=== PATIENT | male | born 1960 | race Caucasian/White ===

== ENCOUNTER 2020-07-11 11:33 | Emergency (ER) | payer BC, OTHER ==
[~2020-07-11] VITALS: Ht 177.8 cm; Wt 88.5 kg
[2020-07-11 11:52] LABS: BASOPHILS % (AUTO) 1 % (0-10); EOSINOPHILS # (AUTO) 0.2 10^3/uL (0.0-0.3); EOSINOPHILS % (AUTO) 3 % (0-10); HEMATOCRIT 49 % (40-54); HEMOGLOBIN 16.6 g/dL (13.3-17.7); LYMPHOCYTES # (AUTO) 2.1 10^3/uL (1.0-4.0); LYMPHOCYTES % (AUTO) 35 % (12-44); MEAN CORPUSCULAR HEMOGLOBIN 31 pg (25-34); MEAN CORPUSCULAR HGB CONC 34 g/dL (32-36); MEAN CORPUSCULAR VOLUME 92 fL (80-99); MEAN PLATELET VOLUME 9.5 fL (9.0-12.2); MONOCYTES # (AUTO) 0.5 10^3/uL (0.0-1.0); MONOCYTES % (AUTO) 8 % (0-12); NEUTROPHILS # (AUTO) 3.2 10^3/uL (1.8-7.8); NEUTROPHILS % (AUTO) 54 % (42-75); PLATELET COUNT 185 10^3/uL (130-400); WHITE BLOOD COUNT 5.9 10^3/uL (4.3-11.0)
[2020-07-11 12:02] LABS: ALBUMIN 4.5 GM/DL (3.2-4.5); CHLORIDE 104 MMOL/L (98-107); POTASSIUM 4.6 MMOL/L (3.6-5.0); SODIUM 138 MMOL/L (135-145)
[2020-07-11 12:03] LABS: CALCIUM 9.2 MG/DL (8.5-10.1)
[2020-07-11 12:04] LABS: GLUCOSE 95 MG/DL (70-105)
[2020-07-11 12:05] LABS: TOTAL PROTEIN 7.6 GM/DL (6.4-8.2)
[2020-07-11 12:06] LABS: CARBON DIOXIDE 22 MMOL/L (21-32)
[2020-07-11 12:07] LABS: BILIRUBIN,TOTAL 0.5 MG/DL (0.1-1.0)
[2020-07-11 12:08] LABS: ALKALINE PHOSPHATASE 51 U/L (40-136); CREATININE SERUM 1.22 MG/DL (0.60-1.30); GFR ESTIMATED > 60
[2020-07-11 12:09] LABS: BUN/CREATININE RATIO 9
[2020-07-11 12:11] LABS: ALANINE AMINOTRANSFERASE 21 U/L (0-55)
--- NOTE | 2020-07-11 12:12 | Diagnostic Imaging Report ---
INDICATION: Left-sided facial numbness. Time of exam 11:59 a.m. No prior studies are available for comparison. FINDINGS: The heart size is normal. The pulmonary vascularity is unremarkable. The lungs are clear. No infiltrate, effusion or pneumothorax is detected. IMPRESSION: No acute cardiopulmonary process is detected. Dictated by: Dictated on workstation # [id number]
--- NOTE | 2020-07-11 12:14 | Diagnostic Imaging Report ---
PROCEDURE: CT head wo r/o stroke. TECHNIQUE: Multiple contiguous axial images were obtained through the brain without the use of intravenous contrast. Auto Exposure Controls were utilized during the CT exam to meet ALARA standards for radiation dose reduction. INDICATION: Left-sided facial numbness since the 1200 on 07/10/2020. FINDINGS: Noncontrast CT scan the head demonstrates mass effect midline shift hemorrhage or extra-axial fluid collections. Garcia-white matter differentiation is normal. Ventricles cortical sulci and basilar cisterns are normal. Mild calcifications are seen in the carotid siphons. No insular ribbon sign or hyperdense MCA sign is present. The osseous structures appear normal. IMPRESSION: Normal CT scan the head. Dictated by: Dictated on workstation # [id number]
[2020-07-11 12:16] LABS: FIBRIN DEGRADATION PRODUCTS <= 0.27 UG/ML (0.00-0.49); INR 0.9 (0.8-1.4); PARTIAL THROMBOPLASTIN TIME 27 SEC (24-35); PROTHROMBIN TIME PATIENT 12.7 SEC (12.2-14.7)
[2020-07-11] MEDS ORDERED: IOHEXOL 350 MG/ML 100 ML (OMNIPAQUE 350) VIAL IV ONE (13:00)
[2020-07-11] MEDS ORDERED: NS 100 ML (IVPB) BAG IV ONE (13:00)
[2020-07-11] MEDS ORDERED: HOLD METFORMIN - RECEIVED CONTRAST 20 ML VIAL IV SCH (13:00)
[2020-07-11] MEDS ORDERED: LORazepam INJ 2 MG/ML (ATIVAN) VIAL IVP ONE (13:00)
[2020-07-11 13:05] LABS: BILIRUBIN,URINE NEGATIVE (NEGATIVE); CLARITY,URINE CLEAR; COLOR,URINE YELLOW; GLUCOSE, URINE (UA) NEGATIVE (NEGATIVE); KETONES,URINE NEGATIVE (NEGATIVE); LEUKOCYTE ESTERASE ,URINE NEGATIVE (NEGATIVE); NITRITE,URINE NEGATIVE (NEGATIVE); PROTEIN,URINE NEGATIVE (NEGATIVE)
[2020-07-11 13:15] LABS: BACTERIA,URINE TRACE /HPF
--- NOTE | 2020-07-11 13:53 | Diagnostic Imaging Report ---
PROCEDURE: CT angiography of the head and CT angiography of the neck with and without contrast. TECHNIQUE: Contiguous noncontrast images were obtained from the skull base through the vertex. After intravenous contrast administration, helical CT angiography of the neck was performed. Source data was reformatted into 3D MIP projections. Delayed post contrast acquisition was also obtained. Auto Exposure Controls were utilized during the CT exam to meet ALARA standards for radiation dose reduction. INDICATION: Left-sided numbness. On delayed postcontrast imaging through the brain is without evidence of an enhancing lesion. There is a three-vessel branching pattern to the aortic arch. Both common carotid arteries appear to be widely patent. The carotid bifurcations are unremarkable. Both right and left internal carotid arteries appear to be widely patent. Carotid siphons are unremarkable apart from mild calcified plaque. The M1 and M2 segments of the middle cerebral arteries are widely patent. No filling defect or thromboembolism is identified. The right and left anterior cerebral arteries appear to be widely patent. The basilar artery is patent. There is origin of the left posterior cerebral artery which appears be widely patent. Right posterior cerebral artery is patent. The vertebral arteries appear to be codominant. No stenosis or occlusion is seen. IMPRESSION: Unremarkable CT angiogram of the head and neck. No thromboembolism or large branch occlusion is identified. Dictated by: Dictated on workstation # [id number]
--- NOTE | 2020-07-11 15:00 | NUR ---
Daughter, Will, contacted this RN requesting pt update. Pt update given. Will requesting provider to contact her at earliest convenience. Provider notified. [phone]
--- NOTE | 2020-07-11 15:03 | ED Neurological Problem ---
General Chief Complaint: Neurological Problems Stated Complaint: L ARM/LEG TINGLE Nursing Triage Note: Pt ambulates to room #1 with c/o neurolgical s/s. Pt reports numbness/tingling to lips, L side of face, L hand, et L leg. Pt reports s/s began upon rise on 07/10/20 et have been intermittent since onset. A&OX4. Nursing Sepsis Screen: No Definite Risk Source: patient Exam Limitations: no limitations History of Present Illness Date Seen by Provider: Jul 11, 2020 Time Seen by Provider: 11:36 Initial Comments This 39-year-old gentleman presents to the emergency room with complaints of numbness and tingling to the left perioral area, left hand, and left leg. Symptoms first began about 36 hours ago. He has no true weakness. Symptoms have improved now and he has only a little bit of left perioral numbness remaining. He denies any major medical problems except for hyperlipidemia and high blood pressure not requiring treatment. Allergies and Home Medications Allergies Coded Allergies: No Allergy Information Available (Unverified , 07/11/20) Home Medications Atorvastatin Calcium 40 Mg Tablet, 40 MG PO DAILY Prescribed by: STEPHEN CHAMORRO on 07/11/20 1520 Clopidogrel Bisulfate 75 Mg Tablet, 75 MG PO DAILY Prescribed by: STEPHEN CHAMORRO on 07/11/20 1520 Patient Home Medication List Home Medication List Reviewed: Yes Review of Systems Review of Systems Constitutional: no symptoms reported Eyes: No Symptoms Reported Ears, Nose, Mouth, Throat: see HPI Respiratory: no symptoms reported Cardiovascular: no symptoms reported Gastrointestinal: no symptoms reported Genitourinary: no symptoms reported Musculoskeletal: no symptoms reported Skin: no symptoms reported Psychiatric/Neurological: See HPI Endocrine: No Symptoms Reported Hematologic/Lymphatic: No Symptoms Reported Past Lwxccof-Ktahtc-Wmfvys Hx Past Med/Social Hx: Reviewed Nursing Past Med/Soc Hx Patient Social History Alcohol Use: Denies Use Smoking Status: Never a Smoker Recent Foreign Travel: No Contact w/Someone Who Travel: No Recent Infectious Disease Expo: No Past Medical History Surgeries: No Respiratory: No Cardiac: Yes High Cholesterol, Hypertension Neurological: No Genitourinary: No Gastrointestinal: No Musculoskeletal: No Endocrine: No HEENT: No Cancer: No Physical Exam Vital Signs Vital Signs - First Documented 07/11/20 11:38 Temp 35.4 Pulse 76 Resp 18 B/P (MAP) 170/117 (134) Pulse Ox 97 O2 Delivery Room Air Capillary Refill : Less Than 3 Seconds Height, Weight, BMI Height: '" Weight: lbs. oz. 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, no motor/sensory deficits, alert, normal mood/affect, oriented x 3 Crainal Nerves: normal hearing, normal speech, PERRL Coordination/Gait: normal finger to nose (Normal heel to whitman), normal gait Motor/Sensory: no motor deficit, no sensory deficit, no pronator drift Skin: normal color, warm/dry Stroke NIH Stroke Scale Assessment Select: Initial Level of Consciousness: 0=Alert (0), Level of Consciousness-Questions: 0=Answers both month/age (0), LOC Commands: 0=Performs both tasks (0), Visual Siegel: 0=No visual loss (0), Facial Movement (Facial Paresis): 0=Normal symmetrical mnt (0), Motor Function-Arms Right: 0=No drift (0), Motor Function-Arms Left: 0=No drift (0), Motor Function-Legs Right: 0=No drift (0), Motor Function-Legs Left: 0=No drift (0), Limb Ataxia: 0=Absent (0), Sensory: 0=Normal:no loss (0), Dysarthria: 0=Normal (0), Extinction & Inattention: 0=No abnormality (0), Total: 0 Progress/Results/Core Measures Results/Orders Lab Results Laboratory Tests Test 07/11/20 11:46 07/11/20 12:35 Range/Units White Blood Count 5.9 4.3-11.0 10^3/uL Red Blood Count 5.29 4.30-5.52 10^6/uL Hemoglobin 16.6 13.3-17.7 g/dL Hematocrit 49 40-54 % Mean Corpuscular Volume 92 80-99 fL Mean Corpuscular Hemoglobin 31 25-34 pg Mean Corpuscular Hemoglobin Concent 34 32-36 g/dL Red Cell Distribution Width 12.0 10.0-14.5 % Platelet Count 185 130-400 10^3/uL Mean Platelet Volume 9.5 9.0-12.2 fL Immature Granulocyte % (Auto) 0 % Neutrophils (%) (Auto) 54 42-75 % Lymphocytes (%) (Auto) 35 12-44 % Monocytes (%) (Auto) 8 0-12 % Eosinophils (%) (Auto) 3 0-10 % Basophils (%) (Auto) 1 0-10 % Neutrophils # (Auto) 3.2 1.8-7.8 10^3/uL Lymphocytes # (Auto) 2.1 1.0-4.0 10^3/uL Monocytes # (Auto) 0.5 0.0-1.0 10^3/uL Eosinophils # (Auto) 0.2 0.0-0.3 10^3/uL Basophils # (Auto) 0.0 0.0-0.1 10^3/uL Immature Granulocyte # (Auto) 0.0 0.0-0.1 10^3/uL Prothrombin Time 12.7 12.2-14.7 SEC INR Comment 0.9 0.8-1.4 Activated Partial Thromboplast Time 27 24-35 SEC D-Dimer <= 0.27 0.00-0.49 UG/ML Sodium Level 138 135-145 MMOL/L Potassium Level 4.6 3.6-5.0 MMOL/L Chloride Level 104 98-107 MMOL/L Carbon Dioxide Level 22 21-32 MMOL/L Anion Gap 12 5-14 MMOL/L Blood Urea Nitrogen 11 7-18 MG/DL Creatinine 1.22 0.60-1.30 MG/DL Estimat Glomerular Filtration Rate > 60 BUN/Creatinine Ratio 9 Glucose Level 95 70-105 MG/DL Calcium Level 9.2 8.5-10.1 MG/DL Corrected Calcium 8.8 8.5-10.1 MG/DL Total Bilirubin 0.5 0.1-1.0 MG/DL Aspartate Amino Transf (AST/SGOT) 20 5-34 U/L Alanine Aminotransferase (ALT/SGPT) 21 0-55 U/L Alkaline Phosphatase 51 40-136 U/L Troponin I < 0.028 <0.028 NG/ML Total Protein 7.6 6.4-8.2 GM/DL Albumin 4.5 3.2-4.5 GM/DL Urine Color YELLOW Urine Clarity CLEAR Urine pH 7.0 5-9 Urine Specific [place] <=1.005 1.016-1.022 Urine Protein NEGATIVE NEGATIVE Urine Glucose (UA) NEGATIVE NEGATIVE Urine Ketones NEGATIVE NEGATIVE Urine Nitrite NEGATIVE NEGATIVE Urine Bilirubin NEGATIVE NEGATIVE Urine Urobilinogen 0.2 < = 1.0 MG/DL Urine Leukocyte Esterase NEGATIVE NEGATIVE Urine RBC (Auto) NEGATIVE NEGATIVE Urine RBC NONE /HPF Urine WBC NONE /HPF Urine Crystals NONE /LPF Urine Bacteria TRACE /HPF Urine Casts NONE /LPF Urine Mucus NEGATIVE /LPF Urine Culture Indicated NO My Orders Orders - STEPHEN ESQUIVEL MD Cbc With Automated Diff (07/11/20 11:43) Protime With Inr (07/11/20 11:43) Partial Thromboplastin Time (07/11/20 11:43) Comprehensive Metabolic Panel (07/11/20 11:43) Fibrin Degradation Products (07/11/20 11:43) Troponin I (07/11/20 11:43) Ua Culture If Indicated (07/11/20 11:43) Chest 1 View, Ap/Pa Only (07/11/20 11:43) Ekg Tracing (07/11/20 11:43) Nothing By Mouth (07/11/20 Lunch) Accucheck Stat ONCE (07/11/20 11:43) Ed Iv/Invasive Line Start (07/11/20 11:43) Ed Iv/Invasive Line Start (07/11/20 11:43) Vital Signs Stroke Patient Q15M (07/11/20 11:43) Ct Head Wo-R/O Stroke (07/11/20 11:43) O2 (07/11/20 11:43) Intake & Output 06,14,22 (07/11/20 11:43) Monitor-Rhythm Ecg Trace Only (07/11/20 11:43) Dysphagia Screening Tool (07/11/20 11:43) Ct Angio Head/Neck (07/11/20 12:47) Iohexol Injection (Omnipaque 350 Mg/Ml 1 (07/11/20 13:00) Received Contrast (Hold Metformin- Contr (07/11/20 13:00) Ns (Ivpb) (Sodium Chloride 0.9% Ivpb Bag (07/11/20 13:00) Lorazepam Injection (Ativan Injection) (07/11/20 13:00) Aspirin Tablet (Aspirin Tablet) (07/11/20 15:45) Medications Given in ED Vital Signs/I&O 07/11/20 07/11/20 11:38 15:36 Temp 35.4 35.4 Pulse 76 84 Resp 18 18 B/P (MAP) 170/117 (134) 154/62 (134) Pulse Ox 97 98 O2 Delivery Room Air Blood Pressure Mean: 134 Progress Progress Note #1: Time: 14:58 Progress Note Patient was more than 24 hours past the last known well time and he had no measurable deficits on presentation. He therefore was not eligible for TPA. CT of the head was obtained showing no gross abnormalities and no evidence of subacute stroke. Progress Note #2: Time: 15:15 Progress Note Case was discussed with Dr. Naik, stroke neurologist at [facility]. She agreed that patient is not a TPA candidate. She recommended CT angiogram which was p erformed and showed no additional pathology. She recommended that he start a regimen of Plavix, aspirin, and atorvastatin. The Plavix should be continued for a period of 21 days. After that he should continue with aspirin and atorvastatin. His outpatient work-up should be pursued with echocardiogram, possibly rhythm monitoring, and possibly MRI. Results and plan explained to the patient. Return precautions for further neurologic deficits were reviewed. Patient expressed understanding. Initial ECG Impression Date: Jul 11, 2020 Initial ECG Impression Time: 11:40 Initial ECG Rate: 78 Initial ECG Rhythm: Normal Sinus Initial ECG Intervals: Normal Initial ECG Impression: Normal Comment Normal sinus rhythm with no ST elevation or depression. No abnormal intervals or axis deviation. Diagnostic Imaging Diagonstic Imaging: CT Plain Films/CT/US/NM/MRI: head Comments CT head viewed by me and report reviewed. See report below: NAME: KAELYN SANTIAGO MED REC#: [id number] PT STATUS: REG ER : 1960 PHYSICIAN: STEPHEN ESQUIVEL MD ADMIT DATE: 07/11/20/ER Signed Date of Exam:07/11/20 CT HEAD WO-R/O STROKE PROCEDURE: CT head wo r/o stroke. TECHNIQUE: Multiple contiguous axial images were obtained through the brain without the use of intravenous contrast. Auto Exposure Controls were utilized during the CT exam to meet ALARA standards for radiation dose reduction. INDICATION: Left-sided facial numbness since the 1200 on 07/10/2020. FINDINGS: Noncontrast CT scan the head demonstrates mass effect midline shift hemorrhage or extra-axial fluid collections. Garcia-white matter differentiation is normal. Ventricles cortical sulci and basilar cisterns are normal. Mild calcifications are seen in the carotid siphons. No insular ribbon sign or hyperdense MCA sign is present. The osseous structures appear normal. IMPRESSION: Normal CT scan the head. Dictated by: Dictated on workstation # [id number] Dict: 07/11/20 1204 Trans: 07/11/201212 EL [id number] Interpreted by: DENNY SANCHES MD Electronically signed by: DENNY SANCHES MD 07/11/20 1213 Diagonstic Imaging: Xray Plain Films/CT/US/NM/MRI: chest Comments NAME: KAELYN SANTIAGO MED REC#: [id number] PT STATUS: REG ER : 1960 PHYSICIAN: STEPHEN ESQUIVEL MD ADMIT DATE: 07/11/20/ER Signed Date of Exam:07/11/20 CHEST 1 VIEW, AP/PA ONLY INDICATION: Left-sided facial numbness. Time of exam 11:59 a.m. No prior studies are available for comparison. FINDINGS: The heart size is normal. The pulmonary vascularity is unremarkable. The lungs are clear. No infiltrate, effusion or pneumothorax is detected. IMPRESSION: No acute cardiopulmonary process is detected. Dictated by: Dictated on workstation # [id number] Dict: 07/11/20 1210 Trans: 07/11/20 1508 [facility] [id number] Interpreted by: BIANCA CHERRY MD Electronically signed by: BIANCA CHERRY MD 07/11/20 1508 Diagonstic Imaging: CT Plain Films/CT/US/NM/MRI: other (angiogram head and neck) Comments NAME: KAELYN SANTIAGO Cris MED REC#: [id number] PT STATUS: REG ER : 1960 PHYSICIAN: STEPHEN ESQUIVEL MD ADMIT DATE: 07/11/20/ER Signed Date of Exam:07/11/20 CT ANGIO HEAD/NECK PROCEDURE: CT angiography of the head and CT angiography of the neck with and without contrast. TECHNIQUE: Contiguous noncontrast images were obtained from the skull base through the vertex. After intravenous contrast administration, helical CT angiography of the neck was performed. Source data was reformatted into 3D MIP projections. Delayed post contrast acquisition was also obtained. Auto Exposure Controls were utilized during the CT exam to meet ALARA standards for radiation dose reduction. INDICATION: Left-sided numbness. On delayed postcontrast imaging through the brain is without evidence of an enhancing lesion. There is a three-vessel branching pattern to the aortic arch. Both common carotid arteries appear to be widely patent. The carotid bifurcations are unremarkable. Both right and left internal carotid arteries appear to be widely patent. Carotid siphons are unremarkable apart from mild calcified plaque. The M1 and M2 segments of the middle cerebral arteries are widely patent. No filling defect or thromboembolism is identified. The right and left anterior cerebral arteries appear to be widely patent. The basilar artery is patent. There is origin of the left posterior cerebral artery which appears be widely patent. Right posterior cerebral artery is patent. The vertebral arteries appear to be codominant. No stenosis or occlusion is seen. IMPRESSION: Unremarkable CT angiogram of the head and neck. No thromboembolism or large branch occlusion is identified. Dictated by: Dictated on workstation # [id number] Dict: 07/11/20 1340 Trans: 07/11/20 1508 [facility] [id number] Interpreted by: BIANCA CHERRY MD Electronically signed by: BIANCA CHERRY MD 07/11/20 1508 Reviewed: Reviewed by Me Departure Impression Primary Impression: Numbness on left side Disposition: 01 HOME, SELF-CARE Condition: Stable Departure-Patient Inst. Decision time for Depature: 15:16 Referrals: NO,LOCAL PHYSICIAN (PCP/Family) Primary Care Physician Patient Instructions: High Cholesterol, Transient Ischemic Attack Add. Discharge Instructions: Start the following medications: Aspirin 81 mg daily, may be purchased [id number] Plavix (clopidogrel) 75 mg daily for 21 days Atorvastatin 40 mg daily Follow-up with Dr. Overton on Monday. A repeat exam and discussion of further stroke prevention should occur with Dr. Overton. It is also recommended that you arrange an echocardiogram through Dr. Overton's office. Return to the emergency room promptly if you have worsening symptoms, especially if you develop weakness of any part of your body, vision changes, speech difficulties, facial drooping, confusion, etc. All discharge instructions reviewed with patient and/or family. Voiced understanding. Scripts Atorvastatin Calcium (Atorvastatin Calcium) 40 Mg Tablet 40 MG PO DAILY, #30 TAB Prov: STEPHEN ESQUIVEL MD 07/11/20 Clopidogrel Bisulfate (Plavix) 75 Mg Tablet 75 MG PO DAILY, #21 TAB Prov: STEPHEN ESQUIVEL MD 07/11/20 STEPHEN ESQUIVEL MD Jul 11, 2020 15:03
[2020-07-11] MEDS ORDERED: ATOR40TA70 PO (15:20)
[2020-07-11] MEDS ORDERED: CLOP75TA69 PO (15:20)
[2020-07-11 15:36] VITALS: BP 154/62
[2020-07-11] MEDS ORDERED: ASPIRIN 325 MG (5 GR) TABLET PO ONE (15:45)
== END 2020-07-11 15:36 | disposition home or self-care (01) ==
LOC: ER 11:36
DX: R20.0 Anesthesia of skin (principal); E78.00 Pure hypercholesterolemia, unspecified
CPT/HCPCS: 36415; 70450; 70496; 70498; 71045; 80053; 81000; 84484; 85025; 85379; 85610; 85730; 93041